=== PATIENT | female | born 1965 | race African-American/Black ===

== ENCOUNTER 2022-02-12 14:18 | Emergency (ER) | payer OTHER ==
[~2022-02-12] VITALS: Ht 160 cm; Wt 59.0 kg
[2022-02-12] MEDS ORDERED: FLUORESCEIN SODIUM 1MG/STRIP LEFTEYE ONE (18:45)
[2022-02-12] MEDS ORDERED: TETRACAINE 0.5% OPHTH DROPS 4ML LEFTEYE ONE (19:15)
[2022-02-12] MEDS ORDERED: HOMA5DRO8 LEFTEYE (20:23)
[2022-02-12 20:58] VITALS: BP 124/78
== END 2022-02-12 21:02 | disposition home or self-care (01) ==
LOC: ER 14:18
DX: H20.9 Unspecified iridocyclitis (principal); Y00.XXXA Assault by blunt object, initial encounter; Y93.9 Activity, unspecified; Y92.9 Unspecified place or not applicable; Z98.890 Other specified postprocedural states
CPT/HCPCS: 99283